=== PATIENT | female | born 1955 | race Caucasian/White ===

== ENCOUNTER 2023-12-04 20:04 | Observation (INO) | payer MEDICARE, SELFPAY ==
[2023-12-04 15:51] VITALS: BP 144/70; BMI 29.8
--- NOTE | 2023-12-04 15:58 | ED.GENMED ---
History of Present Illness
General
Chief Complaint: Fever
Time Seen by Provider: 12/04/23 15:57
History of Present Illness
History of Present Illness:
HPI: The patient had a routine colonoscopy this morning with Dr. Mahmood. She states that 1 polyp was removed. After she got home she had chills, she try to take Tylenol twice and vomited. EMS was called. She was given Zofran for vomiting prior
to arrival by EMS. She currently has a headache.
EXAM:
GENERAL: Well appearing in no distress
HEENT: Moist oral mucosa, normal chin to chest testing with no meningeal signs
CARDIOVASCULAR: No murmurs, tachycardic heart rate, regular rhythm, No chest wall tenderness
PULMONARY: No respiratory distress, breath sounds are clear and equal other than some very faint rales at the bases
ABDOMEN: Soft with no peritoneal signs, no tenderness
NEUROLOGIC: Excellent strength all extremities, no coordination deficits
PSYCHIATRIC: Appropriate mental status, normal insight and judgement
EXTREMITIES: Nontender, no edema, moves all extremities equally
SKIN: No rash, no lesions
TIME OF INITIAL ENCOUNTER: 4 PM
NUMBER AND COMPLEXITY OF PROBLEMS ADDRESSED AT THE ENCOUNTER
� Chronic conditions affecting care: Diabetes, high blood pressure, hyperlipidemia
� Acute Exacerbation and/or Progression of Chronic Illness: This is an acute problem
� Differential Diagnosis includes: Postprocedural atelectasis, aspiration, viral syndrome, dehydration, ASHLEY
AMOUNT AND/OR COMPLEXITY OF DATA TO BE REVIEWED AND ANALYZED
� I performed an independent evaluation of and my interpretation is:
EKG:
CT:
X-rays: Chest x-ray clear
Laboratory Studies: White count 13.6, bicarb 17
Other:
� Review of other/old records: I reviewed the notes from the colonoscopy from earlier today�there were no complications
� Clinical information was obtained by an independent historian: Spoke to the at bedside
� Prescriptions/Medications Considered but not given:
� Further testing considered but not performed:
RISK OF COMPLICATIONS AND/OR MORBIDITY OR MORTALITY OF PATIENT MANAGEMENT
� Social determinants of health affecting care: Lives at home
� Discussion with other providers: I notified Dr. Arthur said there was some concern for the possible of aspiration after the procedure but she was well enough to go home earlier in the day.
� Escalation of care including admission/observation vs risk of discharge considered: The patient's bicarb is low. I reassessed the patient after 2.5 L were given and her heart rate remains elevated with a heart rate of 120.
However the patient now states that she feels markedly improved after the fluids were given. She feels warm to touch, repeat oral temperature 99.0 �F. She was given Tylenol. She no longer feels nauseated. The patient continues to meet SIRS
criteria despite given antipyretics and adequate fluid resuscitation. She feels somewhat improved but would prefer her to be kept in the hospital for further evaluation/observation.
Phy Exam
Physical Exam
Physical Exam:
See HPI
Course
Orders/Labs/Results
Orders:
Orders
12/04/23 15:59
0.9% Sodium Chloride 1000 ml [Nss] 1,000 ml IV BOLUS
12/04/23 16:05
Basic Metabolic Panel Urgent
Complete Blood Count/With Diff Urgent
Lactic Acid Urgent
12/04/23 16:06
0.9% Sodium Chloride 1000 ml [Nss] 1,000 ml IV BOLUS
CR Chest - 2 Views Urgent
Comment:
Reason For Exam: post colonoscopy fever
12/04/23 16:12
Blood Culture Urgent
KRISTIN Source: Blood/Venous
Specimen Description:
12/04/23 17:30
Ketorolac [Toradol] 15 mg IV NOW STA
12/04/23 17:31
Lactic Acid Urgent
12/04/23 18:49
Basic Metabolic Panel Urgent
12/04/23 19:02
Acetaminophen [Tylenol] 1,000 mg PO NOW STA
Abnormal Lab Results
12/04/23 12/04/23
16:05 18:49
WBC 13.6 H 10^3/uL
(4.8-10.8)
Hgb 11.9 L g/dL
(12.0-16.0)
Hct 34.9 L %
(37.0-47.0)
Abs Immat Gran (auto) 0.1 H 10^3/uL
(0-0.05)
Absolute Neuts (auto) 12.3 H 10^3/uL
(1.4-6.5)
Absolute Lymphs (auto) 0.8 L 10^3/uL
(1.2-3.4)
Neutrophils % 90.2 H %
(42.2-75.2)
Lymphocytes % 5.7 L %
(20.5-51.1)
Chloride 109 H mmol/L 110 H mmol/L
(98-107) (98-107)
Carbon Dioxide 17 L mmol/L 17 L mmol/L
(22-30) (22-30)
Glucose 115 H mg/dl 127 H mg/dl
(70-99) (70-99)
Calcium 8.3 L mg/dl
(8.4-10.2)
12/04/23 16:05
12/04/23 18:49
Vital Signs
Pulse: 124
Initial and Last Documented VS:
Initial Vital Signs
Temp Pulse Resp BP Pulse Ox
98.5 F 118 18 144/70 97
12/04/23 15:51 12/04/23 15:51 12/04/23 15:51 12/04/23 15:51 12/04/23 15:51
Last Documented Vital Signs
Temp Pulse Resp BP Pulse Ox
98.5 F 124 16 140/69 98
12/04/23 15:51 12/04/23 19:23 12/04/23 18:06 12/04/23 17:07 12/04/23 16:15
*Critical Care Note
Total Time (30-74mins, 75-104mins- exclusive of procedures): Not Applicable
ED Attending Note
-
Portions of this chart may have been created with voice recognition software.� Occasional wrong word or��sound alike� substitutions may have occurred due to the inherent limitations of voice recognition software.
Discharge Plan
Departure
Patient Disposition: Admit
Date of Disposition: 12/04/23
Time of Disposition: 19:23
Presentation/result/management discussed w/ accepting MD/DO: Hospitalist
Discharge Problem:
SIRS (systemic inflammatory response syndrome)
Referrals:
Tl Sung MD [Family Provider] -
Interventions
Interventions:
*Risk Screen - Suicide Last Done: 12/04/23 15:56
*General Assessment Last Done: 12/04/23 15:56
*Neglect/Abuse Screening Last Done: 12/04/23 15:56
*ED COVID-19 Vaccine History Last Done: 12/04/23 15:56
ED- Neurological Assessment Last Done: 12/04/23 15:56
ED-Skin Assessment Last Done: 12/04/23 15:56
Discharge Date and Time
Print Language: JAPANESE
[2023-12-04 16:00] VITALS: BP 135/72
[2023-12-04] MEDS: NSS 1000 IV ×3 (16:13→22:54)
[2023-12-04 16:25] LABS: % Basophils 0.4 % (0-2); % Eosinophils 0.4 % (0-6); % Immature Granulocytes 0.4 % (0-0.5); % Lymphocytes 5.7 % (20.5-51.1); % Monocytes 2.9 % (1.7-9.3); % Neutrophils 90.2 % (42.2-75.2); Absolute Basophils 0.1 10^3/uL (0-0.2); Absolute Eosinophils 0.1 10^3/uL (0-0.7); Absolute Immature Granulocytes 0.1 10^3/uL (0-0.05); Absolute Lymphocytes 0.8 10^3/uL (1.2-3.4); Absolute Monocytes 0.4 10^3/uL (0.1-0.6); Absolute Neutrophils 12.3 10^3/uL (1.4-6.5); Hematocrit 34.9 % (37.0-47.0); Hemoglobin 11.9 g/dL (12.0-16.0); Mean Corp Hgb Conc. 34.1 g/dL (33.0-37.0); Mean Corpuscular Hgb 27.8 pg (27.0-31.0); Mean Corpuscular Volume 81.5 fL (81.0-99.0); Mean Platelet Volume 10.1 fL (7.4-10.4); Nucleated Red Blood Cells % 0 %; Platelet Count 294 10^3/uL (130-400); Red Blood Cell Count 4.28 10^6/uL (4.20-5.40); Red Cell Dist. Width 14.5 % (11.5-14.5); White Blood Cell Count 13.6 10^3/uL (4.8-10.8)
[2023-12-04 16:27] LABS: Lactic Acid 1.1 mmol/L (0.7-2.0)
[2023-12-04 16:33] LABS: Blood Urea Nitrogen 13 mg/dl (7-17); Calcium 8.9 mg/dl (8.4-10.2); Carbon Dioxide 17 mmol/L (22-30); Chloride 109 mmol/L (98-107); Estimated Creatinine Clearance 91 ml/min; Glucose 115 mg/dl (70-99); Sodium 137 mmol/L (135-145); eGFR > 60.00
[2023-12-04 17:07] VITALS: BP 140/69
[2023-12-04] MEDS: TORADOL 15 MG IV (17:43)
[2023-12-04 19:07] LABS: Blood Urea Nitrogen 11 mg/dl (7-17); Calcium 8.3 mg/dl (8.4-10.2); Carbon Dioxide 17 mmol/L (22-30); Chloride 110 mmol/L (98-107); Estimated Creatinine Clearance 91 ml/min; Glucose 127 mg/dl (70-99); Potassium 3.9 mmol/L (3.5-5.1); Sodium 138 mmol/L (135-145); eGFR > 60.00
--- NOTE | 2023-12-04 19:47 | HPS.HSE ---
Family Physician
-
Family Physician: Tl Sung
Chief Complaint
-
fever
History of Present Illness
68-year-old female past medical history of hypertension, hyperlipidemia, diabetes, endometriosis status post hysterectomy, chronic sinusitis status post sinus surgery, presenting with fever and tachycardia. She had routine colonoscopy this morning
with Dr. Mahmood. She states 1 polyp was removed. After she got home she had chills and took Tylenol and vomited a few times. She had fever as high as 101. She had slight cough afterwards and felt like she was congested but did not cough
anything up. He denies shortness of breath or chest pain. She has some generalized abdominal soreness but denies any focal pain. She denies any rectal bleeding or diarrhea after the colonoscopy. She currently has a headache. She denies any
urinary symptoms.
She denies smoking or alcohol use.
Medical History
Past Medical History
Past Medical History: Reports Other ( hypertension, hyperlipidemia, diabetes, endometriosis status post hysterectomy, chronic sinusitis status post sinus surgery,)
Past Surgical History: Reports Other (hysterectomy, sinus surgeries )
Social History
Tobacco: Non-smoker
Alcohol: None
Drug: None
Family History
Family History: Not pertinent
Allergies / Home Medications
Allergies reflects when Allergies were last updated in [employer].
Home Medications with original date entered in [employer]
Allergy/Medication List:
Allergies
Allergy/AdvReac Type Severity Reaction Status Date / Time
metoclopramide [From Reglan] Allergy Severe Unknown Verified 12/04/23 15:56
Tetanus Vaccines and Toxoid Allergy Severe Swelling Verified 12/04/23 15:56
cefuroxime [From Ceftin] Allergy Intermediate Rash Verified 12/04/23 15:55
Review of Systems
-
History Source: Patient
A 12 point ROS was completed and negative except as noted: Yes
Constitutional: Reports No Symptoms
EENT: Reports No Symptoms
Respiratory: Reports See HPI
Cardiac: Reports No Symptoms
Abdomen/GI: Reports See HPI
: Reports No Symptoms
Musculoskeletal: Reports No Symptoms
Skin: Reports No Symptoms
Neurological: Reports No Symptoms
Endocrine: Reports No Symptoms
Hematologic/Lymphatic: Reports No Symptoms
Psych: Reports No Symptoms
Physical Exam
Vital Signs
Vital Signs
Temp Pulse Resp BP Pulse Ox
98.5 F 124 16 140/69 98
12/04/23 15:51 12/04/23 19:23 12/04/23 18:06 12/04/23 17:07 12/04/23 16:15
Physical Exam
General: Well Developed, Well Nourished and No Apparent Distress
HEENT: NormoCephalic, Moist mucous membranes and Atraumatic
Respiratory: Clear
Cardiac: S1/S2 and Regular Rhythm; No Murmur or Rub
GI: Soft, Non Tender, Non Distended and Normal Bowel Sounds; No Organomegaly
Rectal: Deferred by Provider
Musculoskeletal: No Clubbing, No Cyanosis and No Edema
Skin: No Rash
Neuro: Nonfocal/grossly intact
Laboratory Results
-
12/04/23 16:05
12/04/23 18:49
Laboratory Results
Lactic Acid 1.1 mmol/L (0.7-2.0) 12/04/23 16:05
Total Bilirubin Cancelled 12/04/23 16:05
AST Cancelled 12/04/23 16:05
ALT Cancelled 12/04/23 16:05
Alkaline Phosphatase Cancelled 12/04/23 16:05
Data Reviewed
-
Lab Data: Labs Reviewed by me
Old Records: Reviewed
Impression/Plan
-
IMPRESSION:
PLAN:
# Sepsis (leukocytosis, tachycardia) possibly aspiration pneumonitis from colonoscopy
-Chest x-ray shows no acute cardiopulmonary abnormality
-IV fluids
-Blood culture pending
-Levaquin/Flagyl due to cephalosporin allergy
-Monitor for further abdominal symptoms that might indicate intra-abdominal pathology such as perforation
Essential hypertension
-Continue lisinopril
Hyperlipidemia
-Continue statin
Type 2 diabetes
-Insulin sliding scale
Chronic sinusitis status post sinus surgeries
Endometriosis post total abdominal hysterectomy
Full code
DVT prophylaxis-heparin
Regular diet
[2023-12-04] MEDS: FLAGYL 500 MG 100 IV (20:04)
[2023-12-04] MEDS: TYLENOL 1000 MG PO (20:12)
[2023-12-04 21:21] VITALS: BP 137/87; BMI 29.7
[2023-12-04] MEDS: LEVAQUIN 150 IV (22:54)
[2023-12-04] MEDS: HEPARIN 5000 UNITS SC (22:55)
[2023-12-04 23:36] VITALS: BP 108/63
[2023-12-05 03:17] VITALS: BP 114/70
[2023-12-05] MEDS: FLAGYL 500 MG 100 IV ×3 (04:20→20:01)
[2023-12-05 07:15] VITALS: BP 127/71
[2023-12-05 08:00] LABS: % Basophils 0.3 % (0-2); % Eosinophils 0.3 % (0-6); % Immature Granulocytes 0.4 % (0-0.5); % Lymphocytes 10.6 % (20.5-51.1); % Monocytes 3.5 % (1.7-9.3); % Neutrophils 84.9 % (42.2-75.2); Absolute Immature Granulocytes 0.1 10^3/uL (0-0.05); Absolute Lymphocytes 1.3 10^3/uL (1.2-3.4); Absolute Monocytes 0.4 10^3/uL (0.1-0.6); Hemoglobin 10.5 g/dL (12.0-16.0); Mean Corp Hgb Conc. 33.9 g/dL (33.0-37.0); Mean Corpuscular Hgb 28.9 pg (27.0-31.0); Mean Corpuscular Volume 85.4 fL (81.0-99.0); Nucleated Red Blood Cells % 0 %; Platelet Count 241 10^3/uL (130-400); Red Blood Cell Count 3.63 10^6/uL (4.20-5.40); Red Cell Dist. Width 14.6 % (11.5-14.5); White Blood Cell Count 11.8 10^3/uL (4.8-10.8)
[2023-12-05] MEDS: NSS 1000 IV (08:07)
[2023-12-05] MEDS: LIPITOR 20 MG PO (08:09)
[2023-12-05] MEDS: HEPARIN 5000 UNITS SC ×2 (08:09→20:03)
[2023-12-05] MEDS: ZESTRIL 20 MG PO (08:09)
[2023-12-05] MEDS: PROZAC 20 MG PO (08:10)
[2023-12-05 08:50] LABS: ALT (SGPT) 23 U/L (0-35); AST (SGOT) 20 U/L (14-36); Albumin 3.4 g/dl (3.5-5.0); Alkaline Phosphatase 63 U/L (38-126); Blood Urea Nitrogen 8 mg/dl (7-17); Calcium 8.4 mg/dl (8.4-10.2); Carbon Dioxide 21 mmol/L (22-30); Chloride 110 mmol/L (98-107); Estimated Creatinine Clearance 78 ml/min; Glucose 95 mg/dl (70-99); Potassium 4.1 mmol/L (3.5-5.1); Sodium 138 mmol/L (135-145); Total Bilirubin 0.3 mg/dl (0.2-1.3); Total Protein 5.6 g/dl (6.3-8.2); eGFR > 60.00
[2023-12-05 09:39] LABS: COVID-19 Antigen Negative (Negative)
[2023-12-05 11:31] VITALS: BP 114/75
--- NOTE | 2023-12-05 12:45 | W.PN.HOSP.TC ---
Today's Communication/Plan
-
Monitor vital signs
see plan
Continue antibiotics
hopeful discharge tomorrow
follow fever curve
f/u culture
Monitor leukocytosis
Assessment / Plan
Assessment / Plan
General: Well Developed, Well Nourished and No Apparent Distress
HEENT: NormoCephalic, Moist mucous membranes and Atraumatic
Respiratory: Clear
Cardiac: S1/S2 and Regular Rhythm; No Murmur or Rub
GI: Soft, Non Tender, Non Distended and Normal Bowel Sounds; No Organomegaly
Musculoskeletal: No Edema
Neuro: Nonfocal/grossly intact
Sepsis (leukocytosis, tachycardia) possibly aspiration pneumonitis from colonoscopy
-Chest x-ray shows no acute cardiopulmonary abnormality
-IV fluids
-Blood culture pending
-Levaquin/Flagyl due to cephalosporin allergy
-Monitor for further abdominal symptoms that might indicate intra-abdominal pathology such as perforation. no abdominal pain onexam
currently feeling better. if no fever here and bcx neg for 24-48hrs then likely dc
check procal
covid neg
Essential hypertension
-Continue lisinopril
Hyperlipidemia
-Continue statin
Type 2 diabetes
-Insulin sliding scale
Chronic sinusitis status post sinus surgeries
Endometriosis post total abdominal hysterectomy
Full code
DVT prophylaxis-heparin
Anticipated Discharge: Within 24 hours
Subjective/Interval History
-
Date of Service: December 05, 2023
denies pain
Objective Data
-
Labs:
Laboratory Results
12/05/23
07:24
WBC 11.8 H
Hgb 10.5 L
Hct 31.0 L
Plt Count 241
Sodium 138
Potassium 4.1
Chloride 110 H
Carbon Dioxide 21 L
BUN 8
Creatinine 0.7
Glucose 95
Calcium 8.4
Total Bilirubin 0.3
AST 20
ALT 23
Alkaline Phosphatase 63
Vital Signs:
Vital Signs
Temp Pulse Resp BP Pulse Ox
98 F 101 16 114/75 96
12/05/23 11:31 12/05/23 11:31 12/05/23 11:31 12/05/23 11:31 12/05/23 11:31
I&O
12/04/23 12/05/23 12/06/23
06:59 06:59 06:59
Intake Total 0 / 0
Balance 0 / 0
[2023-12-05] MEDS: TYLENOL 650 MG PO (15:23)
[2023-12-05 15:48] VITALS: BP 134/70
--- NOTE | 2023-12-05 16:32 | CM ---
met with patient at bedside.patient lives with her SO of 20 years in an apt with elevator,her bed and bath is on one level,she amb I and is I with her adl.her pcp is dr terrence velásquez she uses [facility] in [place].she has never had a vn or been to
ip rehab
PMH:diabetes on metformin,htn,hld
patient is adm after a colonoscopy with fever/chills.she is on iv levaquin,iv flagyl.follow fever curve.probably dc home tomorrow.plan dc home with no needs.
[2023-12-05] MEDS: NSS IV (17:46)
[2023-12-05 19:37] VITALS: BP 126/67
[2023-12-05] MEDS: LEVAQUIN 150 IV (20:02)
[2023-12-05 23:00] VITALS: BP 137/72
[2023-12-06 03:47] VITALS: BP 162/93
[2023-12-06] MEDS: NSS 1000 IV (04:32)
[2023-12-06] MEDS: FLAGYL 500 MG 100 IV (04:32)
[2023-12-06 07:03] VITALS: BP 145/84
[2023-12-06] MEDS: LIPITOR 20 MG PO (08:08)
[2023-12-06] MEDS: ZESTRIL 20 MG PO (08:08)
[2023-12-06] MEDS: HEPARIN 5000 UNITS SC (08:08)
[2023-12-06] MEDS: PROZAC 20 MG PO (08:08)
[2023-12-06] MEDS: ZOFRAN 4 MG IV (08:14)
[2023-12-06 08:53] LABS: % Basophils 0.5 % (0-2); % Eosinophils 1.6 % (0-6); % Immature Granulocytes 0.8 % (0-0.5); % Lymphocytes 16.2 % (20.5-51.1); % Monocytes 5.2 % (1.7-9.3); % Neutrophils 75.7 % (42.2-75.2); Absolute Eosinophils 0.1 10^3/uL (0-0.7); Absolute Immature Granulocytes 0.1 10^3/uL (0-0.05); Absolute Lymphocytes 1.3 10^3/uL (1.2-3.4); Absolute Monocytes 0.4 10^3/uL (0.1-0.6); Absolute Neutrophils 5.8 10^3/uL (1.4-6.5); Hematocrit 31.9 % (37.0-47.0); Hemoglobin 10.9 g/dL (12.0-16.0); Mean Corp Hgb Conc. 34.2 g/dL (33.0-37.0); Mean Corpuscular Hgb 27.7 pg (27.0-31.0); Mean Corpuscular Volume 81.2 fL (81.0-99.0); Mean Platelet Volume 10.1 fL (7.4-10.4); Nucleated Red Blood Cells % 0 %; Platelet Count 258 10^3/uL (130-400); Red Blood Cell Count 3.93 10^6/uL (4.20-5.40); Red Cell Dist. Width 13.8 % (11.5-14.5); White Blood Cell Count 7.7 10^3/uL (4.8-10.8)
[2023-12-06 09:55] LABS: Blood Urea Nitrogen 8 mg/dl (7-17); Calcium 8.8 mg/dl (8.4-10.2); Carbon Dioxide 21 mmol/L (22-30); Chloride 107 mmol/L (98-107); Estimated Creatinine Clearance 91 ml/min; Glucose 90 mg/dl (70-99); Sodium 136 mmol/L (135-145); eGFR > 60.00
--- NOTE | 2023-12-06 10:06 | W.PN.HOSP.TC ---
Today's Communication/Plan
-
Monitor vital signs see plan
Discharged on oral antibiotics
Patient will follow with PCP outpatient
Assessment / Plan
Assessment / Plan
General: Well Developed, Well Nourished and No Apparent Distress
HEENT: NormoCephalic, Moist mucous membranes and Atraumatic
Respiratory: Clear
Cardiac: S1/S2 and Regular Rhythm; No Murmur or Rub
GI: Soft, Non Tender, Non Distended and Normal Bowel Sounds
Musculoskeletal: No Edema
Neuro: Nonfocal/grossly intact
Sepsis (leukocytosis, tachycardia) possibly aspiration pneumonitis after colonoscopy
-Chest x-ray shows no acute cardiopulmonary abnormality
dc fluids
-Blood culture NGTD
-Levaquin/Flagyl due to cephalosporin allergy
-Monitor for further abdominal symptoms that might indicate intra-abdominal pathology such as perforation. no abdominal pain on exam
currently feeling better and wants to go home; tolerating diet
covid neg
Essential hypertension
-Continue lisinopril
Hyperlipidemia
-Continue statin
Type 2 diabetes
-Insulin sliding scale
Chronic sinusitis status post sinus surgeries
Endometriosis post total abdominal hysterectomy
Full code
DVT prophylaxis-heparin
Anticipated Discharge: Today
Subjective/Interval History
-
Date of Service: December 06, 2023
denies pain
Objective Data
-
Labs:
Laboratory Results
12/06/23
07:56
WBC 7.7
Hgb 10.9 L
Hct 31.9 L
Plt Count 258
Sodium 136
Potassium 4.0
Chloride 107
Carbon Dioxide 21 L
BUN 8
Creatinine 0.6
Glucose 90
Calcium 8.8
Vital Signs:
Vital Signs
Temp Pulse Resp BP Pulse Ox
98.3 F 90 16 145/84 95
12/06/23 07:03 12/06/23 07:03 12/06/23 07:03 12/06/23 07:03 12/06/23 07:03
I&O
12/05/23 12/06/23 12/07/23
06:59 06:59 06:59
Intake Total 0 / 0 570 / 570
Balance 0 / 0 570 / 570
--- NOTE | 2023-12-06 10:11 | W.DCSUMMARY ---
Discharge Summary
Discharge Data
Date of Admission: 12/04/23
Date of Discharge: 12/06/23
-
Pending Results: No
Hospital Course
68-year-old female with past medical history of hyperlipidemia, hypertension, diabetes mellitus, chronic sinusitis, endometriosis came to the hospital after recent colonoscopy with fever and chills. It was thought that patient likely has sepsis
secondary to possible aspiration pneumonitis. Patient was started on antibiotics. Her blood culture was negative. Patient symptoms continue to improve with fluids and she did not had any further episodes of fever so she was deemed stable to be
discharged home with instructions to follow-up closely with all her physicians outpatient.
Discharge Plan
-
Patient Disposition: Home (Routine Discharge)
Discharge Diagnosis/Procedures: Sepsis suspect secondary to aspiration pneumonitis
Diet: As tolerated
Activity: As tolerated
Driving Restrictions: As prior to admission
Bathing Restrictions: None
Blood Work: CBC next week with primary care provider
Referrals:
Tl Sung MD [Family Provider] - in less than 1 week
Prescriptions:
New
levofloxacin 500 mg tablet
500 mg PO DAILY Qty: 5 0RF
metronidazole 500 mg tablet
500 mg PO Q8H 5 Days Qty: 15 0RF
Probiotic 10 billion cell capsule
10,000 mmu cells PO DAILY Qty: 7 0RF
Continued
acetaminophen [Tylenol] 325 mg Tablet
650 mg PO Q6H PRN (Reason: headache)
atorvastatin 20 mg Tablet
20 mg PO DAILY
lisinopril 20 mg Tablet
20 mg PO DAILY
fluoxetine 20 mg Tablet
20 mg PO DAILY
metformin 1,000 mg Tablet
1,000 mg PO DAILY
Discharge Orders:
Discharge Patient (As Directed); Ordered 12/06/23
Ordered By: Gaudencio Mata
Discharge Date and Time
Discharge Date/Time: 12/06/23 11:45
Print Language: TAJIK
[2023-12-06 11:40] VITALS: BP 125/71
== END 2023-12-06 11:45 | disposition home or self-care (01) ==
LOC: 4 EAST ACU 20:04
PROVIDERS: ADMITTING PHYSICIAN Hospitalist; ATTENDING PHYSICIAN Internal Medicine; EMERGENCY PHYSICIAN Emergency Medicine; FAMILY PHYSICIAN Internal Medicine
DX: T81.44XA Sepsis following a procedure, initial encounter (principal); Y84.8 Other medical procedures as the cause of abnormal reaction of the patient, or of later complication, without mention of misadventure at the time of the procedure; Y92.9 Unspecified place or not applicable; A41.9 Sepsis, unspecified organism; R50.9 Fever, unspecified; R11.10 Vomiting, unspecified; R51.9 Headache, unspecified; R00.0 Tachycardia, unspecified; E11.9 Type 2 diabetes mellitus without complications; I10 Essential (primary) hypertension; N80.9 Endometriosis, unspecified; E78.5 Hyperlipidemia, unspecified; J32.9 Chronic sinusitis, unspecified; Z88.7 Allergy status to serum and vaccine; Z88.1 Allergy status to other antibiotic agents; Z88.8 Allergy status to other drugs, medicaments and biological substances; Z90.710 Acquired absence of both cervix and uterus; Z11.52 Encounter for screening for COVID-19
CPT/HCPCS: 71046; 80048; 80053; 83605; 84145; 85025; 87040; 87811; 93005; 96361; 96374; 99285; G0378